=== PATIENT | female | born 1990 | race Caucasian/White ===

== ENCOUNTER 2017-05-21 09:16 | Emergency (ER) | payer MEDICAID ==
[~2017-05-21] VITALS: Ht 167.6 cm; Wt 57.0 kg
[2017-05-21] MEDS ORDERED: QUET100T PO (09:21)
[2017-05-21] MEDS ORDERED: KETOROLAC 60MG/2ML VIAL IM ONE (09:30)
[2017-05-21] MEDS ORDERED: ACETAMINOPHEN 325MG TABLET PO ONE (09:30)
[2017-05-21 10:26] LABS: HCG SCREEN NEGATIVE
[2017-05-21 11:34] VITALS: BP 133/55
== END 2017-05-21 11:45 | disposition home or self-care (01) ==
LOC: ER 09:20
DX: F41.0 Panic disorder [episodic paroxysmal anxiety] (principal); R07.89 Other chest pain; R03.0 Elevated blood-pressure reading, without diagnosis of hypertension; F17.210 Nicotine dependence, cigarettes, uncomplicated
CPT/HCPCS: 71010; 84703; 93005; 96372; 99285; J1885; Z7610

== ENCOUNTER 2018-08-07 22:36 | Emergency (ER) | payer MEDICAID ==
[~2018-08-07] VITALS: Ht 162.6 cm; Wt 59.0 kg
[~2018-08-07 22:36] MED LIST: QUET100T PO
[2018-08-07] MEDS ORDERED: NALOXONE HCL 0.4 MG/ML 1ML VIAL IV ONE (23:45)
[2018-08-07] MEDS ORDERED: HALOPERIDOL LACTATE 5MG/ML VIAL IM ONE (23:45)
[2018-08-08 00:13] LABS: BASOPHILS % 1.1 % (0.0-2.0); EOSINOPHILS % 2.4 % (0.0-5.0); HEMATOCRIT. 34.5 % (36.0-48.0); HEMOGLOBIN. 11.2 g/dL (12.0-16.0); LYMPHOCYTES % 38.1 % (20.0-50.0); MEAN CORPUSCULAR VOLUME 85.7 fL (81.0-99.0); MEAN PLATELET VOLUME 6.9 fl (7.4-10.4); MONOCYTES % 9.2 % (2.0-8.0); NEUTROPHILS % 49.2 % (40.0-76.0); PLATELET 477 x1000/uL (130-400); RED BLOOD CELL COUNT 4.02 mill/uL (4.2-5.4); RED CELL DISTRIBUTION WIDTH 16.2 % (11.6-14.6)
[2018-08-08 00:15] LABS: CHLORIDE 105 mEq/L (98-107)
[2018-08-08 00:21] LABS: ETHANOL BLOOD < 10 mg/dL
[2018-08-08 01:00] LABS: *BARBITURATES SCREEN URINE NEGATIVE (NEGATIVE); PHENCYCLIDINE URINE SCREEN NEGATIVE (NEGATIVE)
[2018-08-08 01:01] LABS: *BENZODIAZEPINES SCREEN URINE NEGATIVE (NEGATIVE); *COCAINE SCREEN URINE NEGATIVE (NEGATIVE); METHADONE URINE SCREEN NEGATIVE (NEGATIVE); OPIATES URINE SCREEN NEGATIVE (NEGATIVE)
[2018-08-08 01:11] LABS: *AMPHETAMINES SCREEN URINE PRESUMTIVE POSITIVE (NEGATIVE); CANNABINOID URINE SCREEN PRESUMTIVE POSITIVE (NEGATIVE)
[2018-08-08 11:45] VITALS: BP 116/78
== END 2018-08-08 11:48 | disposition home or self-care (01) ==
LOC: ER 23:01 → EDUNIT# 23:01 → ER 08-08 11:48
DX: F15.129 Other stimulant abuse with intoxication, unspecified (principal); R40.4 Transient alteration of awareness; F12.10 Cannabis abuse, uncomplicated; E83.51 Hypocalcemia; D64.9 Anemia, unspecified; Z78.1 Physical restraint status
CPT/HCPCS: 36415; 80053; 80305; 81025; 85025; 93005; 99285; G0482